=== PATIENT | male | born 1995 | race Caucasian/White ===

== ENCOUNTER 2019-03-17 20:09 | Emergency (ER) | payer OTHER ==
[2019-03-17] MEDS ORDERED: PROPOFOL 200 MG/20 ML VIAL As Ordered ONE (20:45)
[2019-03-17] MEDS ORDERED: PROPOFOL 200 MG/20 ML VIAL IV ONE (21:15)
[2019-03-17] MEDS ORDERED: NORCO 5/325MG TABLET (BULK FOR ED) PO ONE (21:15)
[2019-03-17 21:21] VITALS: BP 130/63
[2019-03-18] MEDS ORDERED: METAL LOCK LOOP XX ONE (02:21)
--- NOTE | 2019-03-18 07:44 | REP ---
Portable right ankle AP and lateral views: There is a posterior splint. The calcaneal dislocation has been reduced and is maintained in satisfactory position alignment. Electronically Signed by Andreas Huggins MD 03/18/2019 07:37 A
--- NOTE | 2019-03-18 07:45 | REP ---
Portable right ankle AP and lateral views: The calcaneus and 04/04 are dislocated medially. No fracture is identified. The medial ankle mortise is slightly widened. Electronically Signed by Andreas Huggins MD 03/18/2019 07:37 A
== END 2019-03-17 21:37 | disposition home or self-care (01) ==
LOC: M ED 20:09
DX: S93.04XA Dislocation of right ankle joint, initial encounter (principal); X50.9XXA Other and unspecified overexertion or strenuous movements or postures, initial encounter; Y92.830 Public park as the place of occurrence of the external cause